=== PATIENT | male | born 1975 | race Two or more races ===

== ENCOUNTER 2017-10-10 10:22 | Emergency (ER) | payer MEDICAID ==
[~2017-10-10] VITALS: Ht 170.2 cm; Wt 72.6 kg
[2017-10-10 11:16] VITALS: BP 115/78
[2017-10-10 11:57] LABS: Urine WBC None Seen /hpf (0 - 3)
[2017-10-10 12:05] LABS: Urine Bacteria NONE SEEN /hpf (None Seen); Urine Blood Negative /uL (Negative); Urine Specific Gravity 1.012 (1.001-1.035)
== END 2017-10-10 12:30 | disposition home or self-care (01) ==
LOC: ER 10:22
DX: R35.0 Frequency of micturition (principal)
CPT/HCPCS: 81001